=== PATIENT | male | born 1960 | race Caucasian/White ===

== ENCOUNTER 2021-10-11 10:25 | Outpatient (REF) | payer OTHER, SELFPAY ==
--- NOTE | ~2021-10-11 | XR_ITS ---
EXAMINATION: XR THORACIC SPINE XR LUMBAR SPINE CLINICAL INFORMATION: Back pain. COMPARISON: CTA chest of 01/13/2018. TECHNIQUE: Three-view thoracic spine and three-view lumbar spine. FINDINGS: There is minimal scoliosis of the thoracic spine convex right. Disc spaces are maintained with some marginal spurring seen at T7 through T12. No acute fractures identified. Pedicles are intact. No paraspinal line bulge. There are 5 [id number] lumbar vertebrae. There is a grade 1 spondylolisthesis L3-L4 with some marginal sclerosis and disc space narrowing. No acute fracture or spondylolysis is appreciated. Sacroiliac joints appear unremarkable. XR/XR thoracic spine 3V IMPRESSION: Mild degenerative change of the thoracic spine as described. Grade 1 spondylolisthesis L3-L4 degenerative disc disease at the L3-L4 level. No acute fracture.
--- NOTE | ~2021-10-11 | XR_ITS ---
EXAMINATION: XR THORACIC SPINE XR LUMBAR SPINE CLINICAL INFORMATION: Back pain. COMPARISON: CTA chest of 01/13/2018. TECHNIQUE: Three-view thoracic spine and three-view lumbar spine. FINDINGS: There is minimal scoliosis of the thoracic spine convex right. Disc spaces are maintained with some marginal spurring seen at T7 through T12. No acute fractures identified. Pedicles are intact. No paraspinal line bulge. There are 5 [id number]-oisblez lumbar vertebrae. There is a grade 1 spondylolisthesis L3-L4 with some marginal sclerosis and disc space narrowing. No acute fracture or spondylolysis is appreciated. Sacroiliac joints appear unremarkable. XR/XR lumbar spine 2-3V IMPRESSION: Mild degenerative change of the thoracic spine as described. Grade 1 spondylolisthesis L3-L4 degenerative disc disease at the L3-L4 level. No acute fracture.
== END 2021-10-11 10:26 | disposition home or self-care (01) ==
LOC: HO.HMGCX 10:25
PROVIDERS: Visit Provider Internal Medicine
DX: M54.50 Low back pain, unspecified (principal); M54.6 Pain in thoracic spine; M54.2 Cervicalgia
CPT/HCPCS: 72072; 72100

== ENCOUNTER 2023-02-10 09:56 | Emergency (ER) | payer OTHER, SELFPAY ==
--- NOTE | ~2023-02-10 | XR_ITS ---
EXAMINATION: XR ABDOMEN KUB CLINICAL INDICATION: Constipation COMPARISON: None available. TECHNIQUE: 2 AP views of the abdomen. FINDINGS: There is moderate-large volume stool in the large colon, more prominent in the ascending colon. No findings to suggest bowel obstruction. No large pneumoperitoneum is seen on the supine views. Calcifications in the pelvis, suggestive of phleboliths. There are degenerative changes in the spine. Symphysis pubis degeneration. Minimal bilateral hip joint arthritis. Lung bases are clear. XR/XR KUB IMPRESSION: Moderate-large volume stool in the large colon.
--- NOTE | ~2023-02-10 | CT_ITS ---
EXAMINATION: CT ABDOMEN AND PELVIS WITHOUT CONTRAST CLINICAL INFORMATION: Abdominal pain. COMPARISON: KUB done earlier today. TECHNIQUE: Multidetector volumetric imaging was performed from the superior aspect of the liver through the pubic symphysis. Sagittal and coronal reformatted images were obtained on the technologist's workstation. This CT examination was performed using dose optimization techniques as appropriate, variously including the following: *Automated exposure control *Adjustment of mA and/or kV according to patient size (this includes techniques or standardized protocols for targeted exams where dose is matched to indication/reason for exam; i.e. extremities or head) *Use of iterative reconstruction technique DLP: 619 mGy-cm FINDINGS: LUNG BASES: Linear calcific density at right lung base, may represent vascular versus lung parenchymal nodule (156:4). LIVER, GALLBLADDER, AND BILIARY TREE: The liver is normal in size, shape, and attenuation. No focal hepatic lesion or biliary ductal dilatation is present. The gallbladder is unremarkable with no evidence of radiopaque gallstones, gallbladder wall thickening, or obvious pericholecystic inflammatory changes. PANCREAS: Unremarkable. SPLEEN: Unremarkable. ADRENAL GLANDS: Unremarkable. KIDNEYS AND URETERS: The kidneys are normal in size, shape, and attenuation. No hydronephrosis, hydroureter, or calculi seen. No perinephric stranding. BLADDER: Unremarkable. GASTROINTESTINAL TRACT: Asymmetric mural thickening and pericolonic inflammatory changes are present involving the mid to distal part of the sigmoid colon (565:4) along the right lateral and posterior wall, most consistent with diverticulitis. Possibility of underlying mucosal/mural lesion including neoplasm is not excluded. Follow-up imaging to document resolution is recommended. No evidence of any pericolonic fluid collection, perforation or abscess formation present. There is no bowel obstruction seen. No evidence of any fistula formation present. Significant fecal residual is noted throughout the entire large bowel with evidence of colonic diverticulosis. The appendix is unremarkable. The small bowel loops are decompressed. The stomach is decompressed. ABDOMINAL WALL: No significant hernia is appreciated. LYMPH NODES: There are no pathologically enlarged, morphologically abnormal retroperitoneal, mesenteric, pelvic and/or inguinal lymphadenopathy. VASCULAR: Calcific atherosclerotic disease of the aorta and its branches without aneurysm formation. PELVIC VISCERA: The prostate is enlarged, protruding into the base of the bladder. No evidence of any free fluid and/or free air. OSSEOUS STRUCTURES: Marked diffuse osteopenia and multilevel degenerative spondylosis with most pronounced changes at L3-L4. Facet joint arthritic changes. CT/CT abdomen pelvis wo IV con IMPRESSION: 1. Asymmetric mural thickening and pericolonic inflammatory changes are present at the mid to distal part of the sigmoid colon along the right lateral and posterior wall, most consistent with diverticulitis. Possibility of underlying mucosal/mural lesion including neoplasm is not excluded. Follow-up imaging to document resolution is recommended. 2. No evidence of any pericolonic fluid collection, perforation, abscess formation or bowel obstruction or fistula formation present. 3. Significant fecal residual throughout the entire large bowel with underlying colonic diverticulosis. 4. Abnormal enlarged prostate protruding into the base of the bladder. 5. Calcific density at right lung base, may represent vascular calcification versus calcified lung parenchymal nodule, not optimally characterized. 6. Marked diffuse osteopenia and multilevel degenerative spondylosis with most pronounced changes are present at L3-L4. Fleischner guidelines were followed.
[2023-02-10 10:12] VITALS: BP 134/92; PULSE 86; RESP 17; TEMP 36.5; O2SAT 96; BMI 29.8
[2023-02-10 10:28] VITALS: BP 131/74; PULSE 65; RESP 18; TEMP 36.8; O2SAT 95
[2023-02-10 10:36] LABS: Appearance Urine Clear; Color Urine Yellow; Glucose Urine UA Negative (Negative); Leukocyte Esterase Urine Negative (Negative); Nitrite Urine Negative (Negative); Urine Blood Negative (Negative); Urine Ketones Negative (Negative); Urine Protein Negative (Neg-Trace)
--- NOTE | 2023-02-10 10:53 | ED.GENADULT ---
HPI - General Adult General Chief complaint: General Medical Stated complaint: lower abd pain Time Seen by Provider: 02/10/23 10:25 Source: patient and RN notes reviewed Mode of arrival: ambulatory Limitations: no limitations History of Present Illness HPI narrative: This is a 62-year-old male presenting to the emergency department for evaluation of lower abdominal pain and cramping x2 weeks. Patient reports that over the last 2 weeks a constant lower abdominal cramping. He reports that he has had some constipation and decreased in bowel movements size. He states the several days ago he had both of diarrhea. Endorses night sweats and chills for the last 3 days. MD complaint: abd pain Onset (ago): week(s) Radiation: non-radiation Severity: mild Quality: aching Pain Consistency: constant Relieving factors: none Exacerbating factors: none Associated symptoms: denies other symptoms Treatments prior to arrival: none Related Data Previous Rx's Medication Instructions Recorded ciprofloxacin HCl 500 mg tablet 500 mg PO BID 7 days #14 tabs 02/10/23 metronidazole 500 mg tablet 500 mg PO Q8H 7 days #21 tabs 02/10/23 Allergies Allergy/AdvReac Type Severity Reaction Status Date / Time lansoprazole [LANSOPRAZOLE] Allergy Severe ANAPHYLAXIS Unverified 03/11/20 14:48 Penicillins [PENICILLINS] Allergy Severe ANAPHYLAXIS, Unverified 03/11/20 14:48 HIVES Review of Systems Review of Systems: Yes all other systems are reviewed and are negative Constitutional: Constitutional: Reports as per [facility] Social History Social History Alcohol intake: current Alcohol intake frequency: a few times a month Substance Use Type: Marijuana Physical Exam ED Vital Signs: Vital Signs - 24 hr 02/10/23 10:12 02/10/23 10:28 02/10/23 13:04 Temperature 97.7 F 98.3 F 98.6 F Pulse Rate 86 65 52 Respiratory Rate 17 18 18 Blood Pressure 134/92 H 131/74 126/73 Pulse Oximetry 96 95 95 Oxygen Delivery Method Room Air Room Air Room Air 02/10/23 15:37 Temperature Pulse Rate 65 Respiratory Rate 16 Blood Pressure 115/80 Pulse Oximetry 97 Oxygen Delivery Method Room Air BMI result Body Mass Index 29.8 Const General: cooperative, comfortable and no acute distress Orientation/consciousness: patient oriented x3 Limitations: no limitations [facility] Head: Yes normal to inspection, Yes normocephalic and Yes atraumatic Ears: hearing grossly normal bilaterally General nose exam: Normal external nose present Face and sinus: Yes normal facial exam Mouth: Normal oral and palatal mucosa present, oropharynx normal and moist mucous membranes Throat: Yes posterior oropharynx normal Eyes General: appearance normal, both eyes and all related structures Eyelids: Yes eyelids normal Conjunctivae: conjunctivae normal Sclerae: sclerae normal Pupils: Equal, round and reactive pupils present EOM: EOMs intact bilaterally Neck Neck: Yes normal visual inspection, Yes full ROM and Yes no lymphadenopathy Lymphatic: no lymphadenopathy noted Chest Chest palpation & inspection: normal inspection of the chest Resp Effort & Inspection: normal respiratory effort and able to speak in complete sentences Auscultation: clear to auscultation bilaterally, no crackles, no rales, no rhonchi and no wheezes Cardio Rate: regular rate Rhythm: regular rhythm Heart sounds: S1 normal heart sound present and S2 normal heart sound present GI Other: Abdomen is soft, with tenderness to palpation in the suprapubic region. No rebound or guarding. Normoactive bowel sounds in all 4 quadrants. Inspection: Yes normal to inspection Skin General skin exam: no rashes or lesions noted Trauma: no lacerations or abrasions Wounds: no wounds Neuro General: patient oriented x3 and moves all extremities Cranial nerves: Yes Equal, round and reactive pupils present Extrem General: Yes normal to inspection Right upper extremity: normal to inspection Left upper extremity: normal to inspection Right lower extremity: normal to inspection Left lower extremity: normal to inspection Course Reevaluation(s) Reevaluation #1: KUB reveaaling constipation - given pt reporting some increased urinary changes since the start of his symptoms, ordered CT for further evaluation. CT revealing diverticulitis - will tx with cipro & flagyl. Incidental findings of abnormally enlarged prostate protruding into the base of the bladder, as well as calcific densities seen at the right lung base. Discussed these findings with patient and advised him to follow up with PCP and urologist (as he has a hx of enlarged prostate). I discussed the importance of following up with them outpatient due to these findings as unable to discern if this is BPH or malignant process. Pt expresses good understanding and reports that he will follow up. Pt vitals WNL, pt stable for d/c. Medical Decision Making Medical Decision Making [facility] Narrative: 62-year-old male presenting to the emergency department for evaluation of abdominal cramping x2 weeks. Also reporting decreased bowel size. He has a history of diverticulitis, states symptoms feel slightly similar. On arrival, vital signs within normal limits. Abdomen is soft, nontender, nondistended, with tenderness to palpation the suprapubic region overlying the bladder. Patient admits to having some difficulty urinating but admits that this is chronic for him. He denies any nausea or vomiting. No fevers. Plan: Labs, UA, KUB x-ray ordered Differential Diagnosis Differential Diagnoses: The differential diagnosis associated with the presentation includes Constipation, bowel obstruction, BPH, UTI, diverticulosis Lab Data [facility] Lab Attestation statement: I reviewed the patient's lab results. 02/10/23 11:00 02/10/23 11:00 Labs: Lab Results 02/10/23 02/10/23 02/10/23 Range/Units 10:30 11:00 11:00 WBC 8.3 (4.8-10.8) X10*3/uL RBC 4.95 (4.60-5.80) X10*6/uL Hgb 14.3 (14.0-18.0) g/dl Hct 42.0 (42.0-52.0) % MCV 84.8 (80.0-98.0) fL MCH 28.9 (27.0-33.0) pg MCHC 34.0 (31.0-36.0) g/dl RDW 12.4 (11.0-16.0) % Plt Count 246 (160-400) X10*3/uL MPV 9.6 (9.4-12.4) fL Immature Gran % (Auto) 0.4 (0.0-0.4) % Neut % (Auto) 73.3 H (45-73) % Lymph % (Auto) 14.4 L (20-40) % [place] % (Auto) 8.7 (2-11) % Eos % (Auto) 2.8 (0-4) % Baso % (Auto) 0.4 (0-2) % Lymph # (Auto) 1.2 (1.2-4.9) X10*3/uL [place] # (Auto) 0.7 (0.1-1.2) X10*3/uL Eos # (Auto) 0.2 (0.0-0.4) X10*3/uL Baso # (Auto) 0.0 (0.0-0.2) X10*3/uL Abs Immat Gran (auto) 0.03 (0.00-0.03) X10*3/uL Absolute Neuts (auto) 6.1 (2.0-8.3) x10*3/uL Absolute Nucleated RBC 0.000 (0.0-0.012) X10*3/uL Nucleated RBC % (auto) 0.0 (0.0-0.2) /100WBC Sodium 140 (135-145) mmol/L Potassium 4.1 (3.3-5.1) mmol/L Chloride 107 (96-108) mmol/L Carbon Dioxide 25 (22-29) mmol/L Anion Gap 12 (12-20) BUN 9 (9-16) mg/dL Creatinine 0.78 (0.5-1.4) mg/dL Estim Creat Clear Calc 105.6 Estimated GFR > 60 Random Glucose 116 H (60-115) mg/dL Calcium 9.9 (8.4-10.2) mg/dL Total Bilirubin 0.3 (0.0-1.0) mg/dL Direct Bilirubin 0.2 (0.0-0.5) mg/dL AST 16 (5-37) U/L ALT 17 (0-40) U/L Alkaline Phosphatase 70 (39-117) U/L Total Protein 7.0 (6.5-8.0) g/dL Albumin 4.0 (3.5-5.0) g/dL Lipase 63 (8-78) U/L Urine Color Yellow Urine Appearance Clear Urine pH 7.0 (5.0-9.0) Ur Specific [place] 1.010 (1.005-1.025) Urine Protein Negative (Neg-Trace) mg/dL Urine Glucose (UA) Negative (Negative) mg/dL Urine Ketones Negative (Negative) mg/dL Urine Blood Negative (Negative) Urine Nitrite Negative (Negative) Ur Leukocyte Esterase Negative (Negative) Radiology Impression Discussion of test interpretation with radiology: I have reviewed the radiologist's reading. Radiologist Impression: [address] [address] XRay Report Signed Patient: Ladarius Myers MR#: [id number] : 1960 Acct:[id number] Age/Sex: 62 / M ADM Date: 02/10/23 Loc: HO.ED Attending Dr: Ordering Physician: Elise Choi Date of Service: 02/10/23 Procedure(s): XR KUB Accession Number(s): [id number] cc: Elise Choi~ EXAMINATION: XR ABDOMEN KUB CLINICAL INDICATION: Constipation? COMPARISON: None available.? TECHNIQUE: 2 AP views of the abdomen. FINDINGS: There is moderate-large volume stool in the large colon, more prominent in the ascending colon. No findings to suggest bowel obstruction. No large pneumoperitoneum is seen on the supine views. Calcifications in the pelvis, suggestive of phleboliths. There are degenerative changes in the spine. Symphysis pubis degeneration. Minimal bilateral hip joint arthritis. Lung bases are clear. XR/XR KUB IMPRESSION: Moderate-large volume stool in the large colon. ? Dictated By: Weston Reeder MD FINDINGS: LUNG BASES: Linear calcific density at right lung base, may represent vascular versus lung parenchymal nodule (156:4). LIVER, GALLBLADDER, AND BILIARY TREE: The liver is normal in size, shape, and attenuation. No focal hepatic lesion or biliary ductal dilatation is present. The gallbladder is unremarkable with no evidence of radiopaque gallstones, gallbladder wall thickening, or obvious pericholecystic inflammatory changes.? PANCREAS: Unremarkable.? SPLEEN: Unremarkable.? ADRENAL GLANDS: Unremarkable.? KIDNEYS AND URETERS: The kidneys are normal in size, shape, and attenuation. No hydronephrosis, hydroureter, or calculi seen. No perinephric stranding. ? BLADDER: Unremarkable.? GASTROINTESTINAL TRACT: Asymmetric mural thickening and pericolonic inflammatory changes are present involving the mid to distal part of the sigmoid colon (565:4) along the right lateral and posterior wall, most consistent with diverticulitis. Possibility of underlying mucosal/mural lesion including neoplasm is not excluded. Follow-up imaging to document resolution is recommended. No evidence of any pericolonic fluid collection, perforation or abscess formation present. There is no bowel obstruction seen. No evidence of any fistula formation present. Significant fecal residual is noted throughout the entire large bowel with evidence of colonic diverticulosis. The appendix is unremarkable. The small bowel loops are decompressed. The stomach is decompressed. ABDOMINAL WALL: No significant hernia is appreciated.? LYMPH NODES: There are no pathologically enlarged, morphologically abnormal retroperitoneal, mesenteric, pelvic and/or inguinal lymphadenopathy. VASCULAR: Calcific atherosclerotic disease of the aorta and its branches without aneurysm formation. PELVIC VISCERA: The prostate is enlarged, protruding into the base of the bladder. No evidence of any free fluid and/or free air.? OSSEOUS STRUCTURES: Marked diffuse osteopenia and multilevel degenerative spondylosis with most pronounced changes at L3-L4. Facet joint arthritic changes.? CT/CT abdomen pelvis wo IV con IMPRESSION: ? 1. Asymmetric mural thickening and pericolonic inflammatory changes are present at the mid to distal part of the sigmoid colon along the right lateral and posterior wall, most consistent with diverticulitis. Possibility of underlying mucosal/mural lesion including neoplasm is not excluded. Follow-up imaging to document resolution is recommended. 2. No evidence of any pericolonic fluid collection, perforation, abscess formation or bowel obstruction or fistula formation present. 3. Significant fecal residual throughout the entire large bowel with underlying colonic diverticulosis. 4. Abnormal enlarged prostate protruding into the base of the bladder. 5. Calcific density at right lung base, may represent vascular calcification versus calcified lung parenchymal nodule, not optimally characterized. 6. Marked diffuse osteopenia and multilevel degenerative spondylosis with most pronounced changes are present at L3-L4.? ? Fleischner guidelines were followed. External Record Review External record reviewed: Inpatient record, Office record, Outpatient record, Prior outpatient labs, Prior outpatient radiology, Primary care record and Outside ED record Discharge Plan Discharge Clinical Impression: Diverticulitis Patient Disposition: Home, Self-Care Instructions: Diverticulitis (ED) Additional Instructions: Your CT scan shows signs of diverticulitis. Please take prescribed antibiotic as directed. You also need to follow-up with GI regarding findings as they are unable to rule out a neoplasm. You also have an abnormally large prostate which is protruding into the base of the bladder, please follow-up with Urology. Please take prescribed antibiotic as directed. Finish the entire course even if your feeling better. Plenty of fluids and plenty of rest. If any new or worsening symptoms occur including but not limited to worsening abdominal pain, inability to urinate, urinary changes or bowel changes please return for re-evaluation. Prescriptions: New ciprofloxacin HCl 500 mg tablet 500 mg PO BID 7 Days Qty: 14 0RF metronidazole 500 mg tablet 500 mg PO Q8H 7 Days Qty: 21 0RF Referrals: [facility] [Provider Group] [facility] [Provider Group] Interventions: ED Discharge Assessment Last Done: 02/10/23 17:14 Discharge Date/Time: 02/10/23 17:14
[2023-02-10 11:04] LABS: MANUAL DIFF FLAG NO
[2023-02-10 11:05] LABS: Basophils Percent Auto 0.4 % (0-2); Eosinophils Absolute Auto 0.2 X10*3/uL (0.0-0.4); Eosinophils Percent Auto 2.8 % (0-4); Hemoglobin 14.3 g/dl (14.0-18.0); Imm Gran Abs Auto 0.03 X10*3/uL (0.00-0.03); Imm Gran Pct Auto 0.4 % (0.0-0.4); Lymphocytes Absolute Auto 1.2 X10*3/uL (1.2-4.9); Lymphocytes Percent Auto 14.4 % (20-40); Mean Corpuscular Hemoglobin 28.9 pg (27.0-33.0); Mean Corpuscular Volume 84.8 fL (80.0-98.0); Mean Platelet Volume 9.6 fL (9.4-12.4); Monocytes Absolute Auto 0.7 X10*3/uL (0.1-1.2); Monocytes Percent Auto 8.7 % (2-11); Neutrophils Absolute Auto 6.1 x10*3/uL (2.0-8.3); Neutrophils Percent Auto 73.3 % (45-73); Platelet Count 246 X10*3/uL (160-400); Red Blood Count 4.95 X10*6/uL (4.60-5.80); Red Cell Distribution Width 12.4 % (11.0-16.0); White Blood Count 8.3 X10*3/uL (4.8-10.8)
--- NOTE | 2023-02-10 11:13 | PC.NURSE ---
pt voided 275ml, bladder scan shows 221 ml remaining post void
[2023-02-10 11:25] LABS: Alanine Aminotransferase 17 U/L (0-40); Alkaline Phosphatase 70 U/L (39-117); Anion Gap 12 (12-20); Aspartate Amino Transferase 16 U/L (5-37); Bilirubin Direct 0.2 mg/dL (0.0-0.5); Bilirubin Total 0.3 mg/dL (0.0-1.0); Blood Urea Nitrogen 9 mg/dL (9-16); Calcium 9.9 mg/dL (8.4-10.2); Carbon Dioxide 25 mmol/L (22-29); Chloride 107 mmol/L (96-108); Creatinine Clr Calc Pharmacy 105.6; Estimated Glomerular Filt Rate > 60; Glucose Random 116 mg/dL (60-115); Lipase 63 U/L (8-78); Potassium 4.1 mmol/L (3.3-5.1); Sodium 140 mmol/L (135-145)
[2023-02-10 13:04] VITALS: BP 126/73; PULSE 52; RESP 18; TEMP 37; O2SAT 95
[2023-02-10 15:37] VITALS: BP 115/80; PULSE 65; RESP 16; O2SAT 97
== END 2023-02-10 17:14 | disposition home or self-care (01) ==
PROVIDERS: Emergency Provider Emergency Medicine; PCP Internal Medicine
DX: K57.32 Diverticulitis of large intestine without perforation or abscess without bleeding (principal); N40.0 Benign prostatic hyperplasia without lower urinary tract symptoms; J98.4 Other disorders of lung
CPT/HCPCS: 36415; 51798; 74018; 74176; 80048; 80076; 81003; 83690; 85025; 99284

== ENCOUNTER 2023-03-22 08:48 | Outpatient (AMB) | payer OTHER, SELFPAY ==
--- NOTE | 2023-03-22 08:49 | MHC.OFFVIS ---
Intake Intake Visit Reasons: ER follow up- Enlarged prostate Intake Note: NEW Patient presents today to established treatment for Enlarged Prostate: Meds- None Allergies to Antibiotic- Penicillin Blood Thinner- None PVR- 210 mL Patient Symptoms: None Line Tender Required: No Accompanied by: Self / Same As Patient Allergies lansoprazole [LANSOPRAZOLE] Allergy (Severe, Unverified 03/22/23 09:01) ANAPHYLAXIS Penicillins [PENICILLINS] Allergy (Severe, Unverified 03/22/23 09:01) ANAPHYLAXIS, HIVES HPI HPI Comments History of Present Illness Details Ladarius is a 62-year-old male who presents today to the office to establish as a new patient for an evaluation of enlarged prostate. 03/22/2023? He is present today for an evaluation of enlarged prostate. He was seen in ED for lower abdominal pain on 02/10/2023. The patient was advised to take prescribed antibiotic, and plenty of fluids, rest during that time. He was referred to the urology office at that time.?He mentions having difficulty with urination since many years ago. Discussed with the patient that the bladder scan PVR today indicates that he is not emptying his bladder completely. I discussed with the patient that medications can be helpful to allow a stronger stream as well as there are procedures that may be helpful as well. The patient is not interested in medications or procedures for the prostate. I reviewed the CT of the abdomen/pelvis results from 02/10/2023 revealed - kidneys within normal limits, The prostate is enlarged, protruding into the base of the bladder. Evaluation today?UA?leukocytes: negative; blood: negative. PVR- 210 mL Plan: Will monitor bladder scan PVR. PSA screening was ordered. Follow-up in 6 months. [facility] Surgical History (Updated 03/22/23 @ 09:00 by CHARLOTTE Buitrago) History of carpal tunnel surgery History of cholesteatoma Family History (Updated 03/22/23 @ 08:57 by CHARLOTTE Buitrago) Father No problems noted. Mother No problems noted. Social History (Updated 03/22/23 @ 08:59 by CHARLOTTE Buitrago) Alcohol intake: current Alcohol intake frequency: a few times a week Patient Tobacco Use Status: Former Tobacco user Quit Date: 2006 Substance Use Type: Marijuana Review of Systems Const All systems reviewed & are unremarkable except as noted in HPI and below Reports no additional complaints Eyes Reports no additional complaints ENT Reports no additional complaints Card Denies dyspnea Resp Denies cough and Denies dyspnea GI Reports no additional complaints Musc Reports no additional complaints Skin/Breast Denies rash and Denies unusual bruising Neuro Reports no additional complaints Psych Reports no additional complaints Endo Reports no additional complaints Remi/Lymph Reports no additional complaints Aller/Immun Reports no additional complaints Physical Exam Const General: healthy appearing, no acute distress and well developed Orientation/consciousness: patient oriented x3 HEENT Head: Yes normocephalic and Yes atraumatic Eyes Conjunctivae: conjunctivae normal Neck Neck: Yes normal visual inspection Chest Chest palpation & inspection: normal inspection of the chest Resp Effort & Inspection: normal respiratory effort Cardio Rate: regular rate GI Inspection: Yes normal to inspection Palpation (GI): Soft to palpation Skin General skin exam: no rashes or lesions noted Neuro General: patient oriented x3 Extrem General: No pedal edema Psych Appearance: grossly normal Affect: normal affect Office Procedures Post Void Residual Post Residual Void Post Void Residual (PVR): 210 [id number] Void Residual by ultrasound Results AMB Urinalysis, Automated UA Leukoctes 0 Lorraine/uL Last Edit by Cathryn Dominguez [facility] on 03/22/23 09:15 UA Nitrite Negative Last Edit by Cathryn Dominguez Christina on 03/22/23 09:15 UA Urobilinogen 0.2 mg/dL Last Edit by Cathryn Dominguez [facility] on 03/22/23 09:15 UA Protein 0 mg/dL Last Edit by Cathryn Dominguez [facility] on 03/22/23 09:15 UA pH 6.5 Last Edit by Cathryn Dominguez [facility] on 03/22/23 09:15 UA Blood 0 Alexis/uL Last Edit by Cathryn Dominguez [facility] on 03/22/23 09:15 UA Specific [place]o 1.010 Last Edit by Cathryn Dominguez [facility] on 03/22/23 09:15 UA Ketone Negative Last Edit by JUNO Buitrago on 03/22/23 09:15 UA Bilirubin 0 mg/dL Last Edit by Cathryn Dominguez [facility] on 03/22/23 09:15 UA Glucose 0 mg/dL Last Edit by CHARLOTTE Buitrago on 03/22/23 09:15 Results Reviewed Results Reviewed: Laboratory Last Values Urine pH (Auto) 6.5 03/22/23 09:12 Specific Trego (Auto) 1.010 03/22/23 09:12 Urine Protein (Auto) 0 mg/dL 03/22/23 09:12 Glucose (UA)(Auto) 0 mg/dL 03/22/23 09:12 Urine Ketones (Auto) Negative 03/22/23 09:12 Urine Blood (Auto) 0 Alexis/uL 03/22/23 09:12 Urine Nitrite (Auto) Negative 03/22/23 09:12 Urine Bilirubin (Auto) 0 mg/dL 03/22/23 09:12 Urine Urobilinogen (Auto) 0.2 mg/dL 03/22/23 09:12 Leukocyte Esterase (Auto) 0 Lorraine/uL 03/22/23 09:12 Date of Service: 02/10/23 EXAMINATION: CT ABDOMEN AND PELVIS WITHOUT CONTRAST?? CLINICAL INFORMATION: Abdominal pain.?? COMPARISON: KUB done earlier today. FINDINGS: LUNG BASES: Linear calcific density at right lung base, may represent vascular versus lung parenchymal nodule (156:4). LIVER, GALLBLADDER, AND BILIARY TREE: The liver is normal in size, shape, and attenuation. No focal hepatic lesion or biliary ductal dilatation is present. The gallbladder is unremarkable with no evidence of radiopaque gallstones, gallbladder wall thickening, or obvious pericholecystic inflammatory changes.?? PANCREAS: Unremarkable.?? SPLEEN: Unremarkable.?? ADRENAL GLANDS: Unremarkable.?? KIDNEYS AND URETERS: The kidneys are normal in size, shape, and attenuation. No hydronephrosis, hydroureter, or calculi seen. No perinephric stranding.? ? BLADDER: Unremarkable.?? GASTROINTESTINAL TRACT: Asymmetric mural thickening and pericolonic inflammatory changes are present involving the mid to distal part of the sigmoid colon (565:4) along the right lateral and posterior wall, most consistent with diverticulitis. Possibility of underlying mucosal/mural lesion including neoplasm is not excluded. Follow-up imaging to document resolution is recommended. No evidence of any pericolonic fluid collection, perforation or abscess formation present. There is no bowel obstruction seen. No evidence of any fistula formation present. Significant fecal residual is noted throughout the entire large bowel with evidence of colonic diverticulosis. The appendix is unremarkable. The small bowel loops are decompressed. The stomach is decompressed. ABDOMINAL WALL: No significant hernia is appreciated.?? LYMPH NODES: There are no pathologically enlarged, morphologically abnormal retroperitoneal, mesenteric, pelvic and/or inguinal lymphadenopathy. VASCULAR: Calcific atherosclerotic disease of the aorta and its branches without aneurysm formation. PELVIC VISCERA: The prostate is enlarged, protruding into the base of the bladder. No evidence of any free fluid and/or free air.?? OSSEOUS STRUCTURES: Marked diffuse osteopenia and multilevel degenerative spondylosis with most pronounced changes at L3-L4. Facet joint arthritic changes.?? IMPRESSION: 1. Asymmetric mural thickening and pericolonic inflammatory changes are present at the mid to distal part of the sigmoid colon along the right lateral and posterior wall, most consistent with diverticulitis. Possibility of underlying mucosal/mural lesion including neoplasm is not excluded. Follow-up imaging to document resolution is recommended. 2. No evidence of any pericolonic fluid collection, perforation, abscess formation or bowel obstruction or fistula formation present. 3. Significant fecal residual throughout the entire large bowel with underlying colonic diverticulosis. 4. Abnormal enlarged prostate protruding into the base of the bladder. 5. Calcific density at right lung base, may represent vascular calcification versus calcified lung parenchymal nodule, not optimally characterized. 6. Marked diffuse osteopenia and multilevel degenerative spondylosis with most pronounced changes are present at L3-L4 Assessment & Plan Assessment & Plan (1) Screening PSA (prostate specific antigen): Code(s): Z12.5 - Encounter for screening for malignant neoplasm of prostate (2) BPH loc w urin obs/LUTS: Code(s): N40.1 - Benign prostatic hyperplasia with lower urinary tract symptoms (3) Incomplete bladder emptying: Code(s): R33.9 - Retention of urine, unspecified Plan Will monitor bladder scan PVR. PSA screening was ordered.? Follow-up in 6 months.? Orders: Orders AMB Urinalysis Automated 03/22/23 Z13.9 - Encounter for screening, unspecified AMB Post Void Residual by ultrasound 03/22/23 N39.8 - Other specified disorders of urinary system PSA,Total (Free>4and<10) 03/22/23 Z12.5 - Encounter for screening for malignant neoplasm of prostate, N40.1 - Benign prostatic hyperplasia with lower urinary tract symptoms Patient Instructions: The patient had an opportunity to ask questions regarding treatment plan. All questions were answered. Imaging, Laboratory studies and physical exam results were discussed and reviewed in detail. No major barriers to understanding were identified. The patient expressed understanding and agreement with the above treatment plan.? ? ? The patient is aware they should contact our office by phone for worsening of their current condition or the appearance of new symptoms. Compliance is encouraged with any medications and followup testing that is ordered.? ? ? It is a privilege to be allowed the opportunity to participate in the urologic care of your patient. If you have any questions or concerns regarding treatment for the above conditions please do not hesitate to contact me. The office telephone contact is [phone].? ? ? This note is constructed in part using voice recognition software. While every effort has been made to ensure accuracy poultry farm supervisor errors may have been included.? ? ? Yours sincerely,? ? ? Marilee Lui MD? Coding Level of Care Code New Pt Level 4 (70936) Diagnoses Screening PSA (prostate specific antigen) Z12.5 BPH loc w urin obs/LUTS N40.1 Incomplete bladder emptying R33.9 CPT Codes Post Residual Void - PVR CPT Code: 54991-Owam Void Residual by ultrasound ([id number])
== END 2023-03-22 10:37 | disposition home or self-care (01) ==
PROVIDERS: PCP Internal Medicine; Visit Provider Urology
DX: Z12.5 Encounter for screening for malignant neoplasm of prostate (principal); N40.1 Benign prostatic hyperplasia with lower urinary tract symptoms; R33.9 Retention of urine, unspecified
CPT/HCPCS: 99204

== ENCOUNTER → 2023-03-22 08:48 | Outpatient (BNVA) | payer OTHER, SELFPAY | PROVIDERS: PCP Internal Medicine; Visit Provider Urology | DX: N40.1 Benign prostatic hyperplasia with lower urinary tract symptoms (principal); N13.8 Other obstructive and reflux uropathy; R33.8 Other retention of urine | CPT/HCPCS: 51798; 81003 ==

== ENCOUNTER 2023-04-16 09:02 | Outpatient (REF) | payer OTHER, SELFPAY ==
[2023-04-16 11:47] LABS: PSA,Total (Free>4and<10) 1.75 ng/mL (0.00-4.00)
== END 2023-04-16 09:03 | disposition home or self-care (01) ==
LOC: HO.10HDL 09:02
PROVIDERS: Visit Provider Urology
DX: Z12.5 Encounter for screening for malignant neoplasm of prostate (principal); N40.1 Benign prostatic hyperplasia with lower urinary tract symptoms
CPT/HCPCS: 36415; 84153

== ENCOUNTER 2023-05-28 10:27 | Day surgery (SDC) | payer OTHER, SELFPAY ==
--- NOTE | 2023-05-25 08:49 | P.CONAN_ITS ---
Documented by User: Denisse Stewart NP 05/25/23 08:49 HPI - Anesthesia Eval Consult details Narrative: 63yo M for Upper Endoscopy and Colonoscopy PMFSH Active Problems Active Problems: All Active Problems (Updated 04/28/23 @ 20:38 by Marilee Lui MD) Incomplete bladder emptying (Acute) BPH loc w urin obs/LUTS (Acute) Screening PSA (prostate specific antigen) (Acute) Past Medical History Medical History History of diverticulitis History of pancreatic disorder History of drainage of abscess History of arthritis History of diverticulitis History of obstructive sleep apnea GERD (gastroesophageal reflux disease) Family History Family History Father No problems noted. Mother No problems noted. Surgical History Surgical History History of ear surgery History of bilateral carpal tunnel release History of tonsillectomy and adenoidectomy History of colonoscopy History of carpal tunnel surgery History of cholesteatoma Social History Social History Alcohol intake: current Alcohol intake frequency: a few times a week Patient Tobacco Use Status: Former Tobacco user Quit Date: 2006 Substance Use Type: Marijuana Advance Directives: No Advance Directives Information Provided: Yes Meds Allergies Allergy/AdvReac Type Severity Reaction Status Date / Time lansoprazole [LANSOPRAZOLE] Allergy Severe ANAPHYLAXIS Unverified 03/22/23 09:01 Penicillins [PENICILLINS] Allergy Severe ANAPHYLAXIS, Unverified 03/22/23 09:01 HIVES Home Medications Medication Instructions Recorded Confirmed Last Taken Type No Known Home Meds 03/22/23 03/22/23 Unknown History Assessment and Plan Assessment Anesthesia Assessment: Chart Reviewed Documented by User: Stephanie Asencio MD 05/28/23 12:16 PMFSH Active Problems Active Problems: All Active Problems (Updated 05/28/23 @ 11:58 by Stephanie Asencio MD) Incomplete bladder emptying (Acute) BPH loc w urin obs/LUTS (Acute) Screening PSA (prostate specific antigen) (Acute) CARLEE. Uses CPAP machine Raspy voice Past Medical History Medical History History of diverticulitis History of pancreatic disorder History of drainage of abscess History of arthritis History of diverticulitis History of obstructive sleep apnea GERD (gastroesophageal reflux disease) Family History Family History Father No problems noted. Mother No problems noted. Family history of problems with anesthesia: No Surgical History Surgical History History of ear surgery History of bilateral carpal tunnel release History of tonsillectomy and adenoidectomy History of colonoscopy History of carpal tunnel surgery History of cholesteatoma History of Problems with Anesthesia: No Social History Social History Alcohol intake: current Alcohol intake frequency: a few times a week Patient Tobacco Use Status: Former Tobacco user Quit Date: 2006 Substance Use Type: Marijuana Advance Directives: No Advance Directives Information Provided: Yes Meds Allergies Allergy/AdvReac Type Severity Reaction Status Date / Time lansoprazole [LANSOPRAZOLE] Allergy Severe ANAPHYLAXIS Unverified 03/22/23 09:01 Penicillins [PENICILLINS] Allergy Severe ANAPHYLAXIS, Unverified 03/22/23 09:01 HIVES Home Medications Medication Instructions Recorded Confirmed Last Taken Type No Known Home Meds 03/22/23 03/22/23 Unknown History Exam Height,Weight and Vital Signs: Height 5 ft 7 in Weight 83.915 kg Vital Signs Temp Pulse Resp BP Pulse Ox O2 Del Method 05/28/23 11:17 98 F 73 16 138/86 96 Room Air Airway Mallampati Class: II TM Dist: >3cm Neck ROM: Full Loose/Missing/Broken Teeth: No (Denies broken, loose, missing teeth) Heart: RRR Lungs: CTAB Assessment and Plan Assessment Anesthesia Assessment: Anesthesia Plan Discussed Final Anesthetic Review Family History of Problems with Anesthesia: No History of Problems with Anesthesia: No NPO: Yes ASA Class: III Final Preanesthetic Review: No Changes in Pt Med Stat, Meds/Allgs Chart Re viewed, Consent Obtained/Reviewed and Anes Risks/Benef Reviewed Patient Risk: Intermediate Procedure Risk: Low Assessment/Block/Sedation in SS: Assess/Block/Sedation-SS Anesthetic Plan Anesthetic Plan: MAC: Disposition: Standard PACU
[2023-05-28 11:17] VITALS: BP 138/86; PULSE 73; RESP 16; TEMP 36.6; O2SAT 96; BMI 29.0
[2023-05-28 13:47] VITALS: BP 96/57; PULSE 61; RESP 16; TEMP 36.1; O2SAT 97
--- NOTE | 2023-05-28 13:57 | PM.OP ---
Brief Operative Note Date of Service: 05/28/23 Pre-op diagnosis: Reyna's, screening Post-op diagnosis: other (Same, Hiatal hernia, GERD, Colon polyps) Procedure: EGd with bx, Colonoscopy to the cecum and TI with bx and cold snare polypecptmy Surgeon: Ian Dawkins MD Anesthesia: MAC Was an Telephone Station Repairer used for this Procedure?: No Estimated blood loss (mL): 2.0 Pathology: other (A. EG Junction at 40cm B. Gastric antrum C. Ascending colon polyp D. Transverse colon polyps E. Rectal polyp) Condition: stable Disposition: PACU
[2023-05-28 14:02] VITALS: BP 101/64; PULSE 69; RESP 18; O2SAT 98
[2023-05-28 14:10] VITALS: BP 123/70; PULSE 62; RESP 18; TEMP 36.4; O2SAT 98
--- NOTE | 2023-05-28 22:56 | OP_ITS ---
DATE OF SERVICE: 05/28/2023 SURGEON: Ian Dawkins MD INDICATIONS: The patient presents for evaluation of gastroesophageal reflux, Reyna's esophagus, personal history of tubular adenoma of the colon, and colorectal cancer screening. Full consent has been obtained from him for this, including risks of bleeding and perforation. PREOPERATIVE DIAGNOSIS: POSTOPERATIVE DIAGNOSIS: PROCEDURE PERFORMED: Esophagogastroduodenoscopy with biopsies, and colonoscopy to the cecum and terminal ileum with biopsy and removal of polyps, and cold snare polypectomy. ESTIMATED BLOOD LOSS: COMPLICATIONS: ANESTHESIA: Monitored anesthesia care. ASSISTANTS: SPECIMENS: PREOPERATIVE DIAGNOSES: Gastroesophageal reflux, Reyna's esophagus, history of tubular adenoma of the colon, colorectal cancer screening. POSTOPERATIVE DIAGNOSES: Gastroesophageal reflux, Reyna's esophagus, history of tubular adenoma of the colon, colorectal cancer screening, hiatal hernia, mild gastritis, colon polyps, diverticulosis, and internal hemorrhoids. DESCRIPTION OF PROCEDURE: The patient was placed in the left lateral decubitus position. The Olympus video gastroscope was passed in the posterior oropharynx and upper esophagus under direct vision. The scope was passed slowly into the distal esophagus. The gastroesophageal junction appeared at 40 cm. This area was notable for areas of irregularity and short, less than 1 cm, areas of probable Reyna's mucosa. There was no evidence of any esophagitis nor any lesions. The scope entered the stomach. There was a small hiatal hernia. The scope was advanced to the pylorus, and the duodenum was cannulated to the descending portion. The duodenum including the bulb appeared normal without mass or ulceration. The scope withdrawn back to the stomach. The gastric antrum had some areas of erythema and edema, but no erosions or ulcerations. There was good peristalsis. Biopsies were obtained. The scope was retroflexed visualizing the proximal stomach carefully, which appeared normal, without any sign of mass or ulceration. Scope was straightened and withdrawn back to the esophagus. Biopsies were obtained at the EG junction at 40 cm. Proximal to this, the esophageal mucosa appeared normal. Scope was withdrawn from the patient. He was turned around for the colonoscopy. The digital rectal exam revealed no abnormalities. The Olympus video pediatric colonoscope was entered into the rectum and advanced easily to the cecum. Once in the cecum, I did identify normal-appearing cecal pouch with appendiceal orifice and a normal-appearing ileocecal valve. The terminal ileum was cannulated and appeared normal. The scope withdrawn back in the colon. The entire cecum and ileocecal valve appeared normal. The scope was then slowly withdrawn assessing all mucosal surfaces carefully. Preparation was excellent. In the ascending colon and transverse colon were flat less than 5 mm polyps, which were biopsied and completely removed with cold biopsy forceps. Also, in the transverse colon was an approximately 6 to 8 mm polyp, which was removed by cold snare polypectomy and recovered by suction. The polypectomy site appeared clean, without any sign of residual polyp nor any significant bleeding. There was a mild amount of sigmoid diverticulosis. There was no sign of any colitis nor angiodysplasia. In the rectum was a flat, approximately 6 mm polyp, which was removed by cold snare polypectomy and recovered by suction. The polypectomy site appeared clean, without any sign of residual polyp nor bleeding. The scope was retroflexed visualizing internal hemorrhoids as well. The scope was straightened and withdrawn from the patient. He tolerated both procedures well and was returned to the recovery area in stable condition. IMPRESSION: 1. Colon polyps. 2. Diverticulosis. 3. Internal hemorrhoids. 4. Hiatal hernia. 5. Gastroesophageal reflux, history of Reyna esophagus. 6. Gastritis. PLAN: The results of the biopsies will be checked. At this point, he remains asymptomatic in regard to any reflux and any GI symptoms in general. As such, I will continue to observe him off PPI's given the relatively minimal upper endoscopy findings. I would recommend a repeat upper endoscopy in 3 years for further screening and surveillance in regard to the Reyna esophagus. I would recommend a repeat colonoscopy in 5 years in regard to the colon polyps and need for further screening. He was advised not to use any aspirin and NSAIDs for 1 week. He will otherwise see me on a p.r.n. basis. Of note, I did advise him to see me within 1 year for followup of the previous pancreatic cyst at which time, we may want to obtain further imaging with a followup MRI. He was advised to continue a healthy high-fiber diet with plenty of water and supplemental fiber as needed to avoid constipation in regard to the history of diverticulitis. MD KUMAR Weaver/IVANA / [id number] JOANNE
== END 2023-05-28 14:37 | disposition home or self-care (01) ==
PROVIDERS: PCP Internal Medicine; Visit Provider Internal Medicine
PROC: (CPT 43239; principal; 2023-05-28 11:40)
DX: K22.70 Barrett's esophagus without dysplasia (principal); K29.70 Gastritis, unspecified, without bleeding; K44.9 Diaphragmatic hernia without obstruction or gangrene; K21.9 Gastro-esophageal reflux disease without esophagitis; Z12.11 Encounter for screening for malignant neoplasm of colon; D12.2 Benign neoplasm of ascending colon; D12.3 Benign neoplasm of transverse colon; K57.30 Diverticulosis of large intestine without perforation or abscess without bleeding; Z86.010 Personal history of colon polyps; K86.2 Cyst of pancreas; N40.1 Benign prostatic hyperplasia with lower urinary tract symptoms; F12.90 Cannabis use, unspecified, uncomplicated; G47.33 Obstructive sleep apnea (adult) (pediatric); Z99.89 Dependence on other enabling machines and devices; Z87.891 Personal history of nicotine dependence; K64.8 Other hemorrhoids
CPT/HCPCS: 43239; 45385; 45380; 88305; 88342; J2704